=== PATIENT | male | born 1965 | race Caucasian/White ===

== ENCOUNTER → 2017-10-20 | Emergency (ER) | payer OTHER ==
[~2017-10-20] VITALS: Ht 177.8 cm; Wt 88.0 kg
== END | disposition home or self-care (01) ==
LOC: ER 21:07
DX: S61.221A Laceration with foreign body of left index finger without damage to nail, initial encounter (principal); W26.0XXA Contact with knife, initial encounter; Y93.89 Activity, other specified; Y92.090 Kitchen in other non-institutional residence as the place of occurrence of the external cause; Y99.8 Other external cause status

== ENCOUNTER → 2017-10-29 | Emergency (ER) | payer OTHER | END | disposition left against medical advice (07) | LOC: ER 20:01 | DX: Z53.20 Procedure and treatment not carried out because of patient's decision for unspecified reasons (principal) ==